=== PATIENT | female | born 1980 | race Caucasian/White ===

== ENCOUNTER 2023-05-22 19:18 | Emergency (ER) | payer MEDICAID ==
[~2023-05-22] VITALS: Ht 152.4 cm; Wt 69.9 kg
[2023-05-22 20:48] VITALS: BP 182/100; TEMP 98.6; O2SAT 99
[2023-05-22] MEDS ORDERED: KETOROLAC TROMETHAMINE INJ 30 MG/ML VIAL ONE (21:23)
[2023-05-22] MEDS ORDERED: KETOROLAC TROMETHAMINE INJ 30 MG/ML VIAL IM ONE (21:30)
[2023-05-22] MEDS ORDERED: IBUP-1955 PO (22:41)
[2023-05-22] MEDS ORDERED: CYCL10TA9 PO (22:41)
== END 2023-05-22 22:56 | disposition home or self-care (01) ==
LOC: ER 19:21
DX: S50.02XA Contusion of left elbow, initial encounter (principal); E11.9 Type 2 diabetes mellitus without complications; Z79.899 Other long term (current) drug therapy; V89.2XXA Person injured in unspecified motor-vehicle accident, traffic, initial encounter; Y93.89 Activity, other specified; Y92.89 Other specified places as the place of occurrence of the external cause; Y99.8 Other external cause status
CPT/HCPCS: 99284; 96372; 73080; 73030; J1885